=== PATIENT | female | born 1970 | race African-American/Black ===

== ENCOUNTER 2018-12-13 20:01 | Inpatient (IN) | payer OTHER, SELFPAY ==
[~2018-12-13 20:01] MED LIST: ISOVUE-370 76%-LOCM 1 ML ONE
[2018-12-13] MEDS ORDERED: Fentanyl 100 MCG/2 ML VIAL ONE (20:14)
[2018-12-13 20:33] LABS: INR-International Normal Ratio 0.9; PTT 23.5 SEC (22.9-36.1); Prothrombin Time 12.6 SEC (12.0-14.7)
[2018-12-13 20:40] LABS: Alcohol Less than 10 mg/dL (Less than 10); Lipase 12 U/L (8-78)
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
[2018-12-13 20:49] LABS: ALT (SGPT) 9 U/L (8-55); AST (SGOT) 13 U/L (5-34); Albumin 4.2 g/dL (3.5-5.0); Alkaline Phosphatase 48 U/L (40-110); Anion Gap 15 mmol/L (10-20); BUN (Urea Nitrogen) 10 mg/dL (7.0-18.7); Bilirubin, Total 0.5 mg/dL (0.2-1.2); Calc. Creatinine Clearance 0 mL/min (70-130); Calcium 9.6 mg/dL (7.8-10.44); Carbon Dioxide 20 mmol/L (22-29); Chloride 108 mmol/L (98-107); Estimated GFR-MDRD 62; Globulin 3.5 g/dL (2.4-3.5); Glucose 107 mg/dL (70-105); Potassium 3.1 mmol/L (3.5-5.1); Protein, Total 7.7 g/dL (6.0-8.3); Sodium 140 mmol/L (136-145)
[2018-12-13 20:57] LABS: Hemoglobin 11.1 g/dL (12.0-16.0); Lymphocytes 67 % (21-51); MDiff Complete? YES; Mean Corpuscular HGB CONC 32.4 g/dL (32.0-36.0); Mean Corpuscular Hemoglobin 22.2 pg (27.0-31.0); Mean Corpuscular Volume 68.4 fL (78.0-98.0); Mean Platelet Volume 10.1 fL (7.4-10.4); Microcytosis SLIGHT = 6-15 cells (100X) (0-5/hpf); Monocytes 3 % (0-10); Neutrophil 30 % (42-75); Platelet Count 378 thou/uL (130-400); Platelet Morphology Comment Appears Adequate; RBC Distribution Width 19.3 % (11.5-14.5); Red Blood Cell (RBC) Count 5.03 mill/uL (4.20-5.40); White Blood Cell (WBC) Count 10.7 thou/uL (4.8-10.8)
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
[2018-12-13] MEDS ORDERED: Morphine 4 MG/ML VIAL ONE ×2 (21:05→22:39)
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
--- NOTE | 2018-12-13 21:20 | RAD ---
AP PELVIS: 12/13/18 HISTORY: Pain. Bony pelvis appears intact. Hips appear intact. IMPRESSION: No acute abnormality. POS: [facility]
--- NOTE | 2018-12-13 21:21 | RAD ---
AP CHEST: 12/13/18 HISTORY: Chest pain. Lungs appear clear. No infiltrate. Heart and mediastinum unremarkable. IMPRESSION: No acute findings. POS: [facility]
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
--- NOTE | 2018-12-13 21:24 | RAD ---
RIGHT FEMUR: 12/13/18 Four views. HISTORY: Injury. No evidence of femur fracture. No osseous abnormality identified. IMPRESSION: No acute abnormality. POS: [facility]W
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
[2018-12-13 23:04] LABS: Bilirubin Negative (Negative); Blood, Urine Negative (Negative); Clarity Clear (Clear); Glucose, Urine (Dipstick) Normal (Negative); Leukocyte 25 Leu/uL (Negative); Nitrite 2+ (Negative); Protein, Urine (Dipstick) Negative (Neg-Trace); RBC/HPF 0-3 HPF (0-3); Squamous Epithelial 0-3 HPF (0-3); Urobilinogen Normal mg/dL (Less than 2); WBC/HPF 0-3 HPF (0-3)
[2018-12-13 23:10] LABS: Bacteria/HPF 3+ HPF (None Seen)
[2018-12-13] MEDS ORDERED: Lidocaine 1% (PF) 30 ML VIAL ONE ×2 (23:38→23:40)
[2018-12-13] MEDS ORDERED: Proparacaine 0.5% Opth 15 ML BOT ONE (23:38)
[2018-12-14] MEDS ORDERED: Ondansetron PF 4 MG/2 ML Vial IVP PRN ×2 (00:08→15:28)
[2018-12-14] MEDS ORDERED: Dextrose 5% in Water 1,000 ML IV PRN (00:08)
[2018-12-14] MEDS ORDERED: Dextrose 50% Abboject 50 ML SYRINGE SLOW IVP PRN (00:08)
[2018-12-14] MEDS ORDERED: hydrALAZINE 20 MG/ML VIAL SLOW IVP PRN (00:08)
[2018-12-14] MEDS ORDERED: Promethazine HCl 25 MG/ML VIAL IM/IV PRN (00:08)
[2018-12-14] MEDS ORDERED: traMADol HCl 50 MG TAB PO PRN ×3 (00:13→15:28)
[2018-12-14 00:21] LABS: Medtox Reader # READER 4; Opiate Screen Detected (NotDetected); Phencyclidine (PCP) Not Detected (NotDetected); THC/Cannabinoid Screen Not Detected (NotDetected)
[2018-12-14 00:22] LABS: Amphetamine Not Detected (NotDetected); Barbiturates Screen Not Detected (NotDetected); Benzodiazepine Screen Not Detected (NotDetected); Cocaine Metabolite Screen Not Detected (NotDetected); Medtox Control Line Valid? VALID (VALID); Methadone Not Detected (NotDetected); Methamphetamine Not Detected (NotDetected); Oxycodone Screen Not Detected (NotDetected); Tricyclic Screen Not Detected (NotDetected)
[2018-12-14 00:41] LABS: Magnesium 1.9 mg/dL (1.6-2.6)
[2018-12-14] MEDS ORDERED: Morphine 4 MG/ML VIAL ONE (00:44)
[2018-12-14 00:53] LABS: Phosphorus 1.9 mg/dL (2.3-4.7)
[2018-12-14] MEDS ORDERED: Potassium Phosphate 30 MMOL in Sodium Chloride 0.9% 500 ML IVPB SCH (01:30)
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
[2018-12-14 02:50] VITALS: BMI 37.5
[2018-12-14] MEDS: Morphine 2 MG/ML SYRINGE SLOW IVP PRN ×3 (03:01→08:34)
[2018-12-14] MEDS: Sodium Chloride 0.9% 1,000 ML IV SCH ×2 (03:03→11:08)
[2018-12-14] MEDS: Cipro 250 MG TAB PO SCH ×2 (05:30→21:33)
[2018-12-14] MEDS ORDERED: Acetaminophen 500 MG TAB PO SCH (06:00)
[2018-12-14 06:08] LABS: #Lymphocytes 2.3 thou/uL (1.20-3.40); #Monocytes 0.8 thou/uL (0.11-0.59); #Neutrophils 6.9 thou/uL (1.40-6.50); %Basophils 0.3 % (0.0-1.0); %Eosinophils 0.3 % (0.0-10.0); %Lymphocytes 22.8 % (21.0-51.0); %Neutrophils 68.6 % (42.0-75.0); Hemoglobin 10.2 g/dL (12.0-16.0); Mean Corpuscular HGB CONC 32.4 g/dL (32.0-36.0); Mean Corpuscular Hemoglobin 22.1 pg (27.0-31.0); Mean Corpuscular Volume 68.1 fL (78.0-98.0); Mean Platelet Volume 10.3 fL (7.4-10.4); Platelet Count 329 thou/uL (130-400); RBC Distribution Width 19.3 % (11.5-14.5); Red Blood Cell (RBC) Count 4.62 mill/uL (4.20-5.40)
[2018-12-14 06:31] LABS: Anion Gap 13 mmol/L (10-20); BUN (Urea Nitrogen) 10 mg/dL (7.0-18.7); Calc. Creatinine Clearance 115 mL/min (70-130); Calcium 8.6 mg/dL (7.8-10.44); Carbon Dioxide 21 mmol/L (22-29); Chloride 106 mmol/L (98-107); Estimated GFR-MDRD 73; Glucose 111 mg/dL (70-105); Magnesium 1.9 mg/dL (1.6-2.6); Phosphorus 3.1 mg/dL (2.3-4.7); Potassium 3.7 mmol/L (3.5-5.1); Sodium 136 mmol/L (136-145)
[2018-12-14] MEDS: Ibuprofen 800 MG TAB PO SCH ×2 (06:33→15:14)
[2018-12-14] MEDS ORDERED: traMADol HCl 50 MG TAB PO SCH (08:00)
[2018-12-14] MEDS: Senokot S 8.6-50 MG TAB PO SCH ×2 (08:35→21:33)
[2018-12-14] MEDS: Polyethylene Glycol 3350 17 GM Packet PO SCH (08:35)
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
[2018-12-14] MEDS: Gabapentin 300 MG CAP PO SCH ×3 (09:41→21:33)
[2018-12-14] MEDS ORDERED: diphenhydrAMINE 25 MG CAP PO PRN (10:30)
[2018-12-14] MEDS ORDERED: Acetaminophen/Codeine 30-300mg Tablet PO PRN ×2 (10:34)
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
[2018-12-14] MEDS: Acetaminophen 650 MG in Premix Bag 1 BAG IVPB SCH ×2 (11:54→18:13)
[2018-12-14] MEDS ORDERED: Acetaminophen 1,000 MG in Premix Bag 1 BAG IVPB SCH (12:00)
[2018-12-14] MEDS ORDERED: CEFAZOLIN 2 GM in Premix Bag 1 BAG IVPB SCH (14:00)
[2018-12-14] MEDS ORDERED: Midazolam HCl 2 mg/2 ml Vial ONE (14:33)
[2018-12-14] MEDS ORDERED: Fentanyl 100 MCG/2 ML VIAL ONE ×2 (14:33→14:55)
[2018-12-14] MEDS ORDERED: Lidocaine 2% Jelly 5 ML TUBE ONE (14:56)
[2018-12-14] MEDS ORDERED: Ropivacaine 0.2% 550 ML 550 ML NERVE BLCK SCH (15:28)
[2018-12-14] MEDS ORDERED: Promethazine HCl 25 MG/ML VIAL IM PRN ×2 (15:28→16:50)
[2018-12-14] MEDS ORDERED: Zolpidem Tartrate 5 MG TAB PO PRN (15:28)
[2018-12-14] MEDS ORDERED: Bupivacaine HCl 0.5%/Epinephrine 1:200,000/PF 30 ml Vial ONE (15:58)
[2018-12-14] MEDS ORDERED: Ropivacaine 0.5% HCl/PF (150 MG/30 ML VIAL) ONE (15:58)
[2018-12-14] MEDS ORDERED: Ropivacaine 0.2% HCl/PF (40 MG/20 ML VIAL) ONE (15:58)
[2018-12-14] MEDS ORDERED: Glycopyrrolate 0.2 MG/ML 5 ML SYRINGE ONE (16:05)
[2018-12-14] MEDS ORDERED: ePHEDrine 50 MG/ML VIAL ONE (16:05)
[2018-12-14] MEDS ORDERED: Ketorolac Tromethamine 30 MG/ML VIAL ONE (16:05)
[2018-12-14] MEDS ORDERED: Dexamethasone 20 MG/5 ML VIAL ONE (16:05)
[2018-12-14] MEDS ORDERED: PROPOFOL 200 MG/20 ML VIAL ONE (16:05)
[2018-12-14] MEDS ORDERED: Lidocaine 1% PF 5 ML VIAL ONE (16:05)
[2018-12-14] MEDS ORDERED: PHENYLEPHRINE-NS 100 MCG/ML 10 ML SYRINGE ONE (16:05)
--- NOTE | 2018-12-14 16:45 | RAD ---
RIGHT ANKLE: 12/14/18 Three fluoroscopic views presented. INDICATIONS: Fluoroscopic views taken in OR during open reduction internal fixation right ankle. Fracture. FINDINGS/IMPRESSION: These views show plate and screws transfixing the lateral malleolus and screws transfixing the distal tibia and fibula. POS: [facility]
[2018-12-14] MEDS ORDERED: Ondansetron HCl/PF 4 MG/2 ML Vial IVP PRN (16:50)
[2018-12-14] MEDS ORDERED: Promethazine HCl 25 MG/ML VIAL SLOW IVP PRN (16:50)
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
[2018-12-14] MEDS: Ketorolac Tromethamine 30 MG/ML VIAL IVP SCH (18:12)
[2018-12-14] MEDS ORDERED: FLU VACC QS2019-20(6MOS UP)/PF 60 MCG/0.5 ML SYRINGE IM ONE (21:00)
[2018-12-14] MEDS: CEFAZOLIN 2 GM in Premix Bag 1 BAG IVPB SCH (21:33)
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
[2018-12-15] MEDS: Acetaminophen 650 MG in Premix Bag 1 BAG IVPB SCH ×2 (01:31→05:20)
[2018-12-15] MEDS: Ketorolac Tromethamine 30 MG/ML VIAL IVP SCH ×3 (01:31→12:37)
[2018-12-15] MEDS: Sodium Chloride 0.9% 1,000 ML IV SCH (04:34)
[2018-12-15] MEDS: CEFAZOLIN 2 GM in Premix Bag 1 BAG IVPB SCH (05:20)
[2018-12-15] MEDS: Cipro 250 MG TAB PO SCH ×2 (06:38→22:31)
[2018-12-15] MEDS: Polyethylene Glycol 3350 17 GM Packet PO SCH (08:55)
[2018-12-15] MEDS: traMADol HCl 50 MG TAB PO PRN (08:57)
[2018-12-15] MEDS: Senokot S 8.6-50 MG TAB PO SCH ×2 (08:58→22:30)
[2018-12-15] MEDS: Gabapentin 300 MG CAP PO SCH ×3 (08:58→22:30)
[2018-12-15] MEDS: Enoxaparin Sodium 40 MG/0.4 ML SYRINGE SC SCH (08:59)
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
[2018-12-15] MEDS ORDERED: HYDROcodone/Acetaminophen 5/325 mg Tablet PO PRN ×2 (12:00)
[2018-12-15] MEDS: Acetaminophen 500 MG TAB PO SCH (18:10)
[2018-12-15] MEDS: Ibuprofen 600 MG TAB PO SCH (22:31)
[2018-12-15] MEDS ORDERED: Acetaminophen/Codeine 30-300mg Tablet PO SCH (22:45)
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
[2018-12-16] MEDS: Acetaminophen 500 MG TAB PO SCH ×4 (03:24→18:01)
[2018-12-16] MEDS: Ibuprofen 600 MG TAB PO SCH ×3 (05:28→21:35)
[2018-12-16] MEDS: Cipro 250 MG TAB PO SCH ×2 (05:28→20:36)
[2018-12-16] MEDS: traMADol HCl 50 MG TAB PO PRN (06:23)
[2018-12-16] MEDS: Cyclobenzaprine 10 MG TAB PO PRN (08:56)
[2018-12-16] MEDS: Enoxaparin Sodium 40 MG/0.4 ML SYRINGE SC SCH (08:57)
[2018-12-16] MEDS: Senokot S 8.6-50 MG TAB PO SCH ×2 (08:57→20:36)
[2018-12-16] MEDS: Polyethylene Glycol 3350 17 GM Packet PO SCH (08:57)
[2018-12-16] MEDS: Gabapentin 300 MG CAP PO SCH ×3 (08:57→20:35)
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
--- NOTE | 2018-12-16 11:32 | RAD ---
CHEST ONE VIEW: LEFT RIBS THREE VIEWS: HISTORY: Chest pain. FINDINGS: The heart size is normal. There is continued elevation of the right hemidiaphragm as on 12/13/2018. N o lobar consolidation, pneumothoraces or pleural effusions are seen. There is a fracture involving th e left 7th rib. POS: [facility]
[2018-12-17] MEDS: Acetaminophen/Codeine 30-300mg Tablet PO PRN ×4 (00:39→22:01)
[2018-12-17] MEDS: Acetaminophen 500 MG TAB PO SCH ×5 (00:44→23:36)
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
[2018-12-17] MEDS: traMADol HCl 50 MG TAB PO PRN ×3 (04:22→18:04)
[2018-12-17] MEDS: Ibuprofen 600 MG TAB PO SCH ×3 (05:03→22:01)
[2018-12-17] MEDS: Cipro 250 MG TAB PO SCH (05:05)
[2018-12-17] MEDS: Enoxaparin Sodium 40 MG/0.4 ML SYRINGE SC SCH (08:46)
[2018-12-17] MEDS: Gabapentin 300 MG CAP PO SCH ×3 (08:47→20:05)
[2018-12-17] MEDS: Polyethylene Glycol 3350 17 GM Packet PO SCH (08:47)
[2018-12-17] MEDS: Senokot S 8.6-50 MG TAB PO SCH ×2 (08:47→20:05)
[2018-12-17] MEDS: Cyclobenzaprine 10 MG TAB PO PRN ×2 (11:43→19:52)
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
[2018-12-18] MEDS: Acetaminophen 500 MG TAB PO SCH ×2 (05:31→13:24)
[2018-12-18] MEDS: traMADol HCl 50 MG TAB PO PRN ×2 (05:32→15:25)
[2018-12-18] MEDS: Ibuprofen 600 MG TAB PO SCH ×2 (05:32→13:24)
[2018-12-18] MEDS: Enoxaparin Sodium 40 MG/0.4 ML SYRINGE SC SCH (10:02)
[2018-12-18] MEDS: Gabapentin 300 MG CAP PO SCH ×2 (10:02→13:24)
[2018-12-18] MEDS: Senokot S 8.6-50 MG TAB PO SCH (10:02)
[2018-12-18] MEDS: Polyethylene Glycol 3350 17 GM Packet PO SCH (10:02)
[2018-12-18] MEDS: Acetaminophen/Codeine 30-300mg Tablet PO PRN (10:04)
[2018-12-18] MEDS: Cyclobenzaprine 10 MG TAB PO PRN (10:05)
[2018-12-18 11:35] VITALS: BP 128/85; TEMP 98.1
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
== END 2018-12-18 15:30 | disposition home or self-care (01) | DRG 493 ==
LOC: ERS 20:01 → SURG A 12-14 01:41 → OBSVTOIN 12-14 01:41 → SURG A 12-14 02:35
PROVIDERS: ADMIT Specialist; ATTEND Specialist
PROC: 0HQMXZZ Repair Right Foot Skin, External Approach (ICD-10-PCS; principal; 2018-12-14)
PROC: 0SSF04Z Reposition Right Ankle Joint with Internal Fixation Device, Open Approach (ICD-10-PCS; 2018-12-14)
PROC: 08QRXZZ Repair Left Lower Eyelid, External Approach (ICD-10-PCS; 2018-12-14)
PROC: 08QPXZZ Repair Left Upper Eyelid, External Approach (ICD-10-PCS; 2018-12-14)
DX: S82.491A Other fracture of shaft of right fibula, initial encounter for closed fracture (principal); S22.32XA Fracture of one rib, left side, initial encounter for closed fracture; N39.0 Urinary tract infection, site not specified; N17.9 Acute kidney failure, unspecified; J98.11 Atelectasis; S01.112A Laceration without foreign body of left eyelid and periocular area, initial encounter; E87.6 Hypokalemia; E83.39 Other disorders of phosphorus metabolism; B96.20 Unspecified Escherichia coli [E. coli] as the cause of diseases classified elsewhere; S93.439A Sprain of tibiofibular ligament of unspecified ankle, initial encounter; S91.311A Laceration without foreign body, right foot, initial encounter; V89.2XXA Person injured in unspecified motor-vehicle accident, traffic, initial encounter; W22.10XA Striking against or struck by unspecified automobile airbag, initial encounter
CPT/HCPCS: 12002; 29515; 36415; 70450; 70486; 71045; 71260; 72125; 72170; 74177; 76000; 80048; 80053; 80306; 80307; 81003; 81015; 83690; 83735; 84100; 85025; 85610; 85730; 87077; 87086; 87186; 90471; 90686; 93005; 94760; 96365; 96375; 96376; A4306; C1713; G0008; G0390; J0131; J0670; J0690; J1100; J1650; J1885; J2001; J2250; J2270; J2704; J2795; J3010; J3490; J7050; Q0163; Q9966